=== PATIENT | female | born 1935 | race Caucasian/White ===

== ENCOUNTER 2019-03-03 09:25 | Inpatient (IN) | payer OTHER ==
[~2019-03-03] VITALS: Ht 152.4 cm; Wt 84.6 kg
[~2019-03-03 09:25] MED LIST: ACETAMINOPHEN/H1 TA6 PO; BG MC; CAPTOPRIL PO; CYCLOBENZAPRINE5 MG PO; HCTZ PO; HUMULIN R100 U/1 M1 SC; IPRATROPIUM BROM3 M2 HHN; LAC PO; LEVAQUIN250 MG PO; LISINOPRIL; METFORMIN ER500 M1 PO; ZOFI IV
[2019-03-03 09:39] VITALS: Ht 152.4 cm; Wt 84.6 kg
--- NOTE | 2019-03-03 09:42 | NUR ---
PT BIB [facility] C/O GENERALIZED WEAKNESS AND SOB THIS AM. PT IN NO RESP DISTRESS RESP EVEN AND UNLABORED PT PLACED ON FULL CM VSS O2 SAT 99% ON RA WILL CONTINUE TO MONITOR AWAITING MD KINSEY
--- NOTE | 2019-03-03 09:49 | NUR ---
PT WITH URGE TO VOID, PLACED ON BEDPAN
--- NOTE | 2019-03-03 10:09 | NUR ---
URINE COLLECTED AND SENT TO LAB
--- NOTE | 2019-03-03 10:25 | NUR ---
DR DECKER AT BEDSIDE FOR MSE
--- NOTE | 2019-03-03 10:30 | NUR ---
PT FEELS IF SHE IS HAVING URINARY INCONTINENCE AND WOULD LIKE TO HAVE BED BLANCO PLACED UNDER HER. PT ON BED BLANCO, DAUGHTER REMAINS AT BEDSIDE PT IN NO DISTRESS WILL MONITOR
--- NOTE | 2019-03-03 11:30 | NUR ---
BED BLANCO REMOVED APPROX 300ML OF URINE NOTED IN BED BLANCO
[2019-03-03 11:40] LABS: microscopic required? YES; urine erythrocyte TRACE (NEGATIVE)
--- NOTE | 2019-03-03 12:00 | NUR ---
PT BACK TO BED BLANCO PER PTS REQUEST
[2019-03-03 12:01] LABS: BASOPHIL % 1.1 % (0-2); PLATELET COUNT 228 x10^3mcL (130-400); RED CELL DISTRIBUTION WIDTH 13.9 % (11.5-14.5)
[2019-03-03 12:08] LABS: CALCIUM 9.1 mg/dL (8.5-10.1); CHLORIDE SERUM 105 mmol/L (98-107); GLUCOSE SERUM 143 mg/dL (74-106); POTASSIUM SERUM 3.8 mmol/L (3.5-5.1); SODIUM SERUM 141 mmol/L (136-145)
[2019-03-03 12:13] LABS: ALKALINE PHOSPHATASE 77 U/L (46-116); ALT/SGPT 11 U/L (14-59); AST/SGOT 12 U/L (15-37); BILIRUBIN TOTAL 0.48 mg/dL (0.20-1.00); TOTAL PROTEIN, SERUM 6.8 g/dL (6.4-8.2)
--- NOTE | 2019-03-03 12:15 | NUR ---
PT ACCIDENTLY MOVED IN BED AND URINE SPILLED. [facility] PROVIDED. PT CHANGED INTO NEW GOWN AND CLEAN LINEN CHANGED. PT IN NO DISTRESS VSS WILL MONITOR
--- NOTE | 2019-03-03 15:05 | NUR ---
REPORT GIVEN TO HIMA CAMPO RESUMING CARE OF PT IN TELE FLOOR
--- NOTE | 2019-03-03 15:17 | NUR ---
PT TRANSPORTED TO MED/SURG AT THIS TIME VIA GURNEY BY EMT LUCINA. NAD NOTED UPON LEAVING ED.
[2019-03-03 15:37] VITALS: BP 154/74
--- NOTE | 2019-03-03 15:40 | NUR ---
RECEIVED PT FROM ED VIA CAN. ORIENTED PT TO ROOM AND SURROUNDINGS. IV NOTED TO LAC PATENT AND INTACT. INSTRUCTED PT ON THE USE OF CALL LIGHT FOR ASSISTANCE. ENDORSED PT TO PRIMARY NURSE HIMA
--- NOTE | 2019-03-03 16:45 | NUR ---
PT HAS VOIDED 3-4 TIMES SINCE ARRIVAL TO UNIT. PT STATES THIS IS NORMAL GOING THIS OFTEN FOR HER. AT TIMES PT IS INCONTINENT. FOUL SMELL COMING FROM THE PERIAREA. CLEANED UP PT AND MADE PT COMFORTABLE IN BED. WILL INFORM OF URINARY FREQUENCY AND URGENCY. PT REQUESTING TO HAVE A DIAPER, EDUCATED PT ON THE RISK OF SKIN BREAKDOWN AND THE RISK FOR AN INCREASE IN BACTERIA WITH A DIAPER. PT VERBALIZED UNDERSTANDING OF INFORMATION. CALL LIGHT WITHIN REACH. WILL CONITNUE TO MONITOR PT FREQUENTLY.
--- NOTE | 2019-03-03 20:09 | NUR ---
PT CURRENTLY RESTING IN BED, NO ACUTE DISTRESS. A/O X4. NO TELE, MED/SURG. DENIES CHEST PAIN. PULSES PALPABLE IN ALL EXTREMITIES, TRACE EDEMA TO BLE NOTED. LUNG SOUNDS CTA BILATERALLY, DENIES SOB. O2 VIA NC AT 2L. BOWEL SOUNDS ACTIVE, LAST BM 03/03/19. URINARY INCONTINENCE AT TIMES. GENERALIZED WEAKNESS. 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 IV TO RAC AND LAC PATENT AND INTACT. BED IN LOWEST POSITION, SIDE RAILS UP X2, CALL LIGHT WITHIN REACH. BED IN LOWEST POSITION, SIDE RAILS UP X2, CALL LIGHT WITHIN REACH. WILL CONTINUE TO MONITOR.
[2019-03-03 20:37] VITALS: BP 149/69
--- NOTE | 2019-03-04 01:57 | NUR ---
PT CURRENTLY RESTING IN BED, NO ACUTE DISTRESS. WILL CONTINUE TO MONITOR.
[2019-03-04 05:03] VITALS: BP 117/60
--- NOTE | 2019-03-04 06:56 | NUR ---
PT SLEPT PERIODICALLY THROUGHOUT NIGHT, NO ACUTE DISTRESS. ALL NEEDS MET AND ATTENDED TO. NO SIGNIFICANT CHANGES. IV PATENT AND INTACT. BED IN LOWEST POSITION, SIDE RAILS UP X2, CALL LIGHT WITHIN REACH. WILL ENDORSE CARE TO ONCOMING NURSE.
[2019-03-04 07:00] LABS: BASOPHIL % 0.3 % (0-2); PLATELET COUNT 226 x10^3mcL (130-400); RED CELL DISTRIBUTION WIDTH 14.2 % (11.5-14.5)
--- NOTE | 2019-03-04 07:05 | NUR ---
RECEIVED PT FROM NIGHT NURSE. PT IS LAYING DOWN IN BED WITH HOB UP RESTING. PT LOOKS TO BE IN NO ACUTE DISTRESS AT THIS TIME AND DENIES ANY PAIN. RESPIRATIONS EVEN AND UNLABORED ON 2L NC. IV SITE PATENT WITH NO SIGNS OF ERYTHEMA OR SWELLING. BED IN LOWEST POSITION, CALL LIGHT WITHIN REACH. WILL CONINTUE TO MONITOR.
[2019-03-04 07:49] LABS: ALKALINE PHOSPHATASE 74 U/L (46-116); ALT/SGPT 9 U/L (14-59); AST/SGOT 18 U/L (15-37); BILIRUBIN TOTAL 0.56 mg/dL (0.20-1.00); CALCIUM 9.2 mg/dL (8.5-10.1); CARBON DIOXIDE 23.9 mmol/L (21-32); CHLORIDE SERUM 105 mmol/L (98-107); CREATININE SERUM 0.9 mg/dL (0.6-1.0); GLUCOSE SERUM 110 mg/dL (74-106); MAGNESIUM 1.5 mg/dL (1.8-2.4); POTASSIUM SERUM 3.9 mmol/L (3.5-5.1); SODIUM SERUM 140 mmol/L (136-145); TOTAL PROTEIN, SERUM 6.5 g/dL (6.4-8.2)
[2019-03-04 07:56] LABS: ALBUMIN 2.8 g/dL (3.4-5.0)
[2019-03-04 08:09] VITALS: BP 146/59
--- NOTE | 2019-03-04 09:30 | NUR ---
MOIST ERYTHEMA NOTED TO THE RIGHT ABD FOLD. CLEANSED AREA AND APPLIED INTERDRY. PT STATES SOME PAIN TO THE AREA WITH MOVEMENT. PT STATES RELIEF FROM PAIN WITH INTERDRY. MOISTURE NOTED UNDER BREAST FOLDS, NO ERYTHEMA NOTED. AREA CLEANSED AND INTERDRY APPLIED. WILL CONTINUE TO MONITOR.
[2019-03-04 11:50] VITALS: BP 133/93
[2019-03-04 16:12] VITALS: BP 143/62
--- NOTE | 2019-03-04 16:50 | NUR ---
PT WILL BE HAVING A US GALLBLADDER AND WILL NEED TO BE NPO FOR DINNER FOR PROCEDURE. PT BLOOD SUGAR IS 267, ACCORDING TO SLIDING SCALE, PT IS TO BE GETTING 9 UNITS REG INSULIN[address] INFORMED DR. GIBSON AND INFORMED OF BLOOD SUGAR. DR. GIBSON PRESCRIBED PT TO HAVE 4 UNIT REG INSULIN. WILL CARRY OUT MEDICATION ORDERED
--- NOTE | 2019-03-04 18:45 | NUR ---
PT IS LAYING DOWN IN BED WITH HOB UP RESTING. PT LOOKS TO BE IN NO ACUTE DISTRESS AND DENIES ANY PAIN AT THIS TIME. PT COMPLAINING OF VOIDING MULTIPLE TIMES AND INFORMED PT THAT MEDICATION THAT THE PT IS TAKING CAUSES HER TO VOID MORE OFTEN. PT VERBALIZED UNDERSTANDING. RESPIRATIONS EVEN AND UNLABORED ON ROOM AIR. IV SITE X2 IS PATENT WITH NO SIGNS OF ERYTHEMA OR SWELLING AND ARE H/L. BED IN LOWEST POSITION, CALL LIGHT WITHIN REACH. WILL ENDORSE TO ONCOMING SHIFT.
--- NOTE | 2019-03-04 20:22 | NUR ---
PT CURRENTLY RESTING IN BED, NO ACUTE DISTRESS. A/O X4. NO TELE, MED/SURG. DENIES CHEST PAIN. PULSES PALPABLE IN ALL EXTREMITIES, BLE TRACE EDEMA NOTED. LUNG SOUNDS CTA BILATERALLY, C/O MILD SOB DR BUCIO INFORMED, RECEIVED NEW ORDERS, RT NOTIFIED FOR TREATMENT. BOWEL SOUNDS ACTIVE, LAST BM 03/03/19. URINARY INCONTINENCE NOTED. GENERALIZED WEAKNESS. BLE ABRASIONS ODETTE. RIGHT ABD ERRYTHEMA, INTERDRY IN PLACE. IV PATENT AND INTACT. BED IN LOWEST POSITION, SIDE RAILS UP X2, CALL LIGHT WITHIN REACH. WILL CONTINUE TO MONITOR.
[2019-03-04 21:04] VITALS: BP 106/66
[2019-03-04 21:11] VITALS: BP 106/66
--- NOTE | 2019-03-05 00:14 | NUR ---
PT CURRENTLY RESTING IN BED, NO ACUTE DISTRESS. WILL CONTINUE TO MONITOR.
[2019-03-05 05:55] VITALS: BP 125/57
--- NOTE | 2019-03-05 07:10 | NUR ---
RECEIVED PT FROM NIGHT NURSE. PT IS LAYING DOWN IN BED WITH HOB UP RESTING WITH EYES CLOSED. PT LOOKS TO BE IN NO ACUTE DISTRESS AT THIS TIME. IV SITE PATENT WITH NO SIGNS OF ERYTHEMA OR SWELLING WITH IV H/L. RESPIRATIONS EVEN AND UNLABORED ON 2L NC. BED IN LOWEST POSITION, CALL LIGHT WITHIN REACH. WILL CONTINUE TO MONITOR.
[2019-03-05 07:15] LABS: BASOPHIL % 0.5 % (0-2); PLATELET COUNT 232 x10^3mcL (130-400); RED CELL DISTRIBUTION WIDTH 14.3 % (11.5-14.5)
--- NOTE | 2019-03-05 08:09 | NUR ---
ECHOCARDIOGRAM PENDING-HAVING ULTRASOUND
[2019-03-05 08:16] VITALS: BP 146/66
--- NOTE | 2019-03-05 08:21 | NUR ---
ECHOCARDIOGRAM PENDIN-NURSE WITH PATIENT
[2019-03-05 08:34] LABS: CALCIUM 9.4 mg/dL (8.5-10.1); CARBON DIOXIDE 25.1 mmol/L (21-32); CHLORIDE SERUM 103 mmol/L (98-107); GLUCOSE SERUM 140 mg/dL (74-106); MAGNESIUM 1.8 mg/dL (1.8-2.4); POTASSIUM SERUM 3.6 mmol/L (3.5-5.1); SODIUM SERUM 139 mmol/L (136-145)
--- NOTE | 2019-03-05 08:58 | NUR ---
ECHOCARDIOGRAM PENDING-HAVING BREAKFAST
--- NOTE | 2019-03-05 09:21 | NUR ---
UNABLE TO OBTAIN VITALS. PT EATING BREAKFAST.
[2019-03-05 12:10] VITALS: BP 140/69
--- NOTE | 2019-03-05 12:53 | NUR ---
PT IS SITTING UP IN BED EATING LUNCH. PT LOOKS TO BE IN NO ACUTE DISTRESS AND DENIES ANY PAIN AT THIS TIME. IV SITE PATENT WITH NO SIGNS OF ERYTHEMA OR SWELLING AND IS H/L. RESPIRATIONS EVEN AND UNLABORED ON 2L NC. BED IN LOWEST POSITION, CALL LIGHT WITHIN REACH. WILL CONITNUE TO MONITOR.
[2019-03-05 17:20] VITALS: BP 148/69
--- NOTE | 2019-03-05 17:27 | NUR ---
PT VERBALIZED CONCERN ABOUT GOING HOME AND HAVING NO ONE TO TAKE HER TO APPOINTMENTS OR CARE FOR HER. PT STATES THAT SHE LIVES WITH HER DAUGHTER BUT HER DAUGHTER WORKS AND TAKES CARE OF HER FAMILY AND THE PT STATES THAT SHE DOES NOT WANT TO OVERLOAD HER WITH WORK. PT IS INTERESTED IN HOME HEALTH AND WOULD LIKE TO KNOW IF SHE CAN HAVE A HOME HEALTH NURSING WHEN DISCHARGE. PT STATES DOES NOT HAVE AN GLUCOSE MONITORING DEVICES AT HOME AND DOES NOT FULLY UNDERSTAND EVERYTHING ABOUT DIABETES AND IS REQUESTING MORE INFORMATION. EDUCATED PT ON DIABETES AND GLUCOSE MANAGAGMENT WITH INSULIN AND PT VERBALIZED UNDERSTANDING BUT IS FORGETFULL AND IS REQUSTING MORE INFORMATION.
--- NOTE | 2019-03-05 18:48 | NUR ---
PT IS LAYING DOWN IN BED WITH HOB UP WATCHING TV. PT LOOKS TO BE IN NO ACUTE DISTRESS AT THIS TIME AND DENIES ANY PAIN. RESPIRATIONS EVEN AND UNLABORED ON 2L NC. IV SITE PATENT WITH NO SIGNS OF ERYTHEMA OR SWELLING. INTERDRY PRESENT TO ABD FOLD AND UNDER BREAST. BED IN LOWEST POSITION, CALL LIGHT WITHIN REACH. WILL ENDORSE TO ONCOMING SHIFT.
--- NOTE | 2019-03-05 19:31 | NUR ---
PT CURRENTLY RESTING IN BED, NO ACUTE DISTRESS. A/O X4. NO TELE, MED/SURG. DENIES CHEST PAIN. PULSES PALPABLE IN ALL EXTREMITIES, TRACE EDEMA TO BLE NOTED. LUNG SOUNDS CTA BILATERALLY, DENIES SOB, RECEIVING O2 VIA NC AT 2L. BOWEL SOUNDS ACTIVE, LAST BM 03/03/19. INCONTINENT AT TIMES. GENERALIZED WEAKNESS. 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 RASH TO RIGHT BREAST FOLD, INTERDRY IN PLACE. ERRYTHEMA TO RIGHT ABD FOLD, INTERDRY IN PLACE. IV PATENT AND INTACT. BED IN LOWEST POSITION, SIDE RAILS UP X2, CALL LIGHT WITHIN REACH. WILL CONTINUE TO MONITOR.
[2019-03-05 20:45] VITALS: BP 121/59
--- NOTE | 2019-03-06 00:19 | NUR ---
PT CURRENTLY RESTING IN BED, NO ACUTE DISTRESS. WILL CONTINUE TO MONITOR.
[2019-03-06 05:31] VITALS: BP 116/59
[2019-03-06 07:12] LABS: BASOPHIL % 0.4 % (0-2); PLATELET COUNT 227 x10^3mcL (130-400); RED CELL DISTRIBUTION WIDTH 14.4 % (11.5-14.5)
[2019-03-06 07:48] LABS: ALKALINE PHOSPHATASE 69 U/L (46-116); ALT/SGPT 16 U/L (14-59); AST/SGOT 16 U/L (15-37); BILIRUBIN DIRECT 0.15 mg/dL (0.0-0.2); BILIRUBIN TOTAL 0.6 mg/dL (0.20-1.00); CARBON DIOXIDE 28.4 mmol/L (21-32); CHLORIDE SERUM 100 mmol/L (98-107); CREATININE SERUM 1.2 mg/dL (0.6-1.0); GLUCOSE SERUM 96 mg/dL (74-106); POTASSIUM SERUM 3.5 mmol/L (3.5-5.1); SODIUM SERUM 138 mmol/L (136-145); TOTAL PROTEIN, SERUM 6.9 g/dL (6.4-8.2)
[2019-03-06 07:50] LABS: ALBUMIN 2.8 g/dL (3.4-5.0)
[2019-03-06 09:38] VITALS: BP 94/49
--- NOTE | 2019-03-06 10:23 | NUR ---
AAO TIMES 4. MED SURG PATIENT. LUNGS CTA BUL, DIMINISHED BASES. NO SOB. O2 SAT ON RA 97%. BS'S ACTIVE TIMES 4. OBESE. UP WITH PT BUT WAS UNABLE TO STAND BECAUSE SHE C/O LOWER BACK AND RIGHT KNEE PAIN AND BILATERAL ANKLE PAIN. I GAVE HER [facility] AT 0920, AND PT SAID THEY WOULD COME BACK AND FINISH HER PT SESSION. PERIPHERAL PULSES PALPABLE. TRACE EDEMA BLE. WITH INTRA DRY TO SLIGHT ERYTHEMA TO ABDOMINAL AND BREAST FOLDS. WITH SCATTERED DRY SCABS BLE, PATIENT STATES HER HOUSE HAS FLEAS AND THEY HAVE BEEN BITING HER, SHE STATES HER DTR BUG BOMBED THE HOUSE FOR FLEAS AND ALSO FLEA TREATED HER ANIMALS WHILE SHE HAS BEEN IN THE HOSPITAL.
[2019-03-06] MEDS ORDERED: LASIX40 MG PO (15:33)
[2019-03-06 16:52] VITALS: BP 110/45; BP 94/49
[2019-03-06 16:54] VITALS: BP 135/58
--- NOTE | 2019-03-06 18:07 | NUR ---
AAO TIMES 4. MED SURG PATIENT. NO C/O PAIN. IV SITE CDI. COOPERATIVE. WATCHING TV. HER FAMILY VISITED HER TODAY.
--- NOTE | 2019-03-06 19:58 | NUR ---
PT IS AWAKE AND ORIENTED X4. PT IS CALM AND COOPERATIVE WITH NURSING CARE. PT DENIES MESA OR DIZZINESS AT THIS TIME. PT IS [place]. PT DENIES CP OR PRESSURE AT THIS TIME. PT HAS TRACE EDEMA NOTED TO BLE. PT HAS PALAPBLE PULSES BILAT ALL EXTREMITIES. PT ON HEPARIN SQ. PT HAS DIM BASES NOTED. RESPIRATIONS EVEN AND UNLABORED ON ROOM AIR. PT DENIES SOB. PT HAS ACTIVE BOWEL SOUNDS. PT DENIES ABD PAIN AND N/V AT THSI TIME. PT ABD SOFT AND NONTENDER UPON PALPATION. PT INCONTINENT AT TIMES. PT HAS GENERALIZED WEAKNESS. PT HAS ABRASIONS NOTED TO BLE. RASH NOTED TO RIGHT BREAST WITH REDNESS NOTED TO ABD FOLDS AND BREAST FOLDS.IV TO LAC. PT DENIES PAIN OR DISCOMFORT. NO SIGNS OF DISTRESS. WILL CONTINUE TO MONITOR.
[2019-03-06 20:47] VITALS: BP 141/63
--- NOTE | 2019-03-06 23:14 | NUR ---
PT HAD AN INCONTINENT EPISODE. PT CLEANED AND TOLERATED WELL. PT RESTING IN BED AT THIS TIME. WILL CONTINUE TO MONITOR.
--- NOTE | 2019-03-07 02:38 | NUR ---
PT REMAINS IN BED AT THIS TIME RESTING IN BED. NO SIGNS OF DISTRESS. WILL CONTINUE TO MONITOR.
[2019-03-07 05:35] VITALS: BP 110/45
--- NOTE | 2019-03-07 06:40 | NUR ---
PT IS CALM AND COOPERATIVE WITH NURSING CARE. PT DENIES PAIN OR DISCOMFORT. PT SLEPT THROUGHOUT THE EVENING. PT HAD INCONTINENT BLADDER EPISODES AND CLEANED. ALL PT NEEDS MET. NO SIGNS OF DISTRESS. WILL ENDORSE TO DAY NURSE.
--- NOTE | 2019-03-07 07:41 | NUR ---
AAO TIMES 4. MED SURG. LUNGS CTA. NO SOB. O2 SAT ON RA 97%. BS'S ACTIVE TIMES 4. OGLESBY WITH GENERALIZED WEAKNESS, HAS ORDER FOR PT. PERIPHERAL PULSES PALPABLE. TRACE EDEMA BLE. TINY DRIED SCABS AND SCRATCHES TO BLE, HEALING. NO C/O PAIN. SHE C/O PAIN YESTERDAY AND WAS UNABLE TO STAND BECAUSE OF PAIN, SO I WILL MEDICATE HER FOR PAIN PRIOR TO PHYSICAL THERAPY.
[2019-03-07 09:16] VITALS: BP 131/51
[2019-03-07 10:25] VITALS: BP 110/45
[2019-03-07] MEDS ORDERED: ROC1I IV (16:10)
--- NOTE | 2019-03-07 17:40 | NUR ---
I GAVE REPORT TO NEIL CAMPO AT [id number] AT [facility] AT [phone].
--- NOTE | 2019-03-07 17:52 | NUR ---
AAO TIMES 4. I GAVE HER DISCHARGE INSTRUCTIONS AND SHE AGREED TO GO TO [facility]. [facility] CALLED AND SAID THEY WOULD BE HERE AT 2029. NO C/O PAIN. NO SOB. COOPERATIVE. SHE GOT UP WITH PHYISCAL THERAPY AND STOOD AND DID SIDE STEPS. MED SURG PATIENT.
[2019-03-07 17:54] VITALS: BP 127/77
--- NOTE | 2019-03-07 21:00 | NUR ---
Call placed to [facility] for the 830pm pickling operator and stated that there is a 2 hrs delayed. Spoken to Marta at [facility] regarding the transport time. Primary RN made aware to let patient knows.
[2019-03-07 21:26] VITALS: BP 137/62
--- NOTE | 2019-03-07 22:52 | NUR ---
STILL AWAITING [facility]. PT RESTING QUIETLY IN BED. ALERT AND ORIENTED. ABLE TO VERBALIZE NEEDS. RESP. EVEN AND UNLABORED. NO ACUTE DISTRESS NOTED. AFEBRILE AND VITAL SIGNS STABLE. DENIES CP OR ANY DISCOMFORT AT THIS TIME. CALL LIGHT WITHIN REACH. WILL CONTINUE TO MONITOR.
--- NOTE | 2019-03-07 23:45 | NUR ---
Call placed again to [facility] and spoken with Marek that they wont be able to pick pt up until close to 2am. Told Marek to have transport pickup at 0700am due to constant delay and its already late. Spoken with Marta and made aware of the delayed of transportation and will transfer pt at 0700 and will hold the bed for patient. Primary RN made aware and to let patient know.
--- NOTE | 2019-03-08 01:57 | NUR ---
PT AWARE OF TIME TO BE DC,D AND TRANSPORTED TO [facility]. RESTING QUIETLY IN BED, WITH EYES CLOSED, APPEARS ASLEEP, EASILY AROUSABLE. RESP. EVEN AND UNLABORED. NO ACUTE DISTRESS NOTED. CALL LIGHT WITHIN REACH. WILL CONTINUE TO MONITOR.
[2019-03-08 06:00] VITALS: BP 146/72
--- NOTE | 2019-03-08 06:09 | NUR ---
SLEPT WELL DURING THE NIGHT. NO SIGNIFICANT CHANGE NOTED IN PT,S CONDITION.AFEBRILE AND VITAL SIGNS STABLE.RESP. EVEN AND UNLABORED. ON ROOM AIR, NO ACUTE DISTRESS NOTED. DENIES CP OR ANY DISCOMFORT. KEPT COMFORTABLE. TO [facility] THIS AM VIA [facility].
--- NOTE | 2019-03-08 06:48 | NUR ---
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
--- NOTE | 2019-03-08 07:30 | NUR ---
RECEIVED A BEDSIDE REPORT. SEEN IN BED AWAKE, ALERT, ORIENTED X4. BREATHING E/U ON ROOM AIR. DENIES PAIN. DOCTOR GROBLER AT BEDSIDE FOR AM ROUND. PATIENT MADE AWARE OF TRANSFER TO [facility] THIS MORNING, WILL BE PICKED UP BY [facility]. [facility] BREAKFAST PROVIDED. GEN BODY WEAKNESS. S/L TO LFA INTACT AND PATENT. PLAN OF CARE DISCUSSED. CALL LIGHT PLACED WITHIN EASY REACH. SIDERAILS UP X2.
[2019-03-08 08:36] VITALS: BP 117/59
--- NOTE | 2019-03-08 08:45 | NUR ---
DUE MEDS GIVEN. [facility]ICARE PROVIDED. NEW GOWN CHANGED. DENIES DISCOMFORT AT THIS TIME.
--- NOTE | 2019-03-08 09:25 | NUR ---
PICKED UP BY [facility]. CONDITION STABLE UPON DISCHARGE. ALL PERSONAL BELONGINGS CHECKED AND KEPT WITH PATIENT. S/L TO RIGHT FOREARM REMOVED WITH CATHETER INTACT, DRSG APPLIED. S/L TO LFA FLUSHED PATENT. [place] CONFIRMED OF PATIENT TRANSFER. LALO(PATIENT'S DAUGHTER) NOTIFIED OF TRANSFER.
== END 2019-03-08 09:10 | DRG 291 ==
LOC: ED 09:25 → MU 14:07
PROVIDERS: Emergency Medicine; Internal Medicine; Internal Medicine Pulmonary Disease; ADMIT Internal Medicine Pulmonary Disease
DX: I11.0 Hypertensive heart disease with heart failure (principal); J96.01 Acute respiratory failure with hypoxia; J18.9 Pneumonia, unspecified organism; N39.0 Urinary tract infection, site not specified; I50.43 Acute on chronic combined systolic (congestive) and diastolic (congestive) heart failure; E11.9 Type 2 diabetes mellitus without complications; R53.1 Weakness; K80.20 Calculus of gallbladder without cholecystitis without obstruction; R55 Syncope and collapse; E86.0 Dehydration; J45.909 Unspecified asthma, uncomplicated; E66.9 Obesity, unspecified; Z68.39 Body mass index [BMI] 39.0-39.9, adult; Z88.0 Allergy status to penicillin
CPT/HCPCS: 82962; 83880; 97110-GP; 97116-GP; 97530-GP; G0378; J0696; J1644; J1815; J1940; J7030; Q0092; Q9967

== ENCOUNTER 2019-05-02 11:12 | Emergency (ER) | payer OTHER ==
[~2019-05-02] VITALS: Ht 149.9 cm; Wt 83.9 kg
[~2019-05-02 11:12] MED LIST changes: +LASIX40 MG PO; +ROC1I IV
[2019-05-02 11:15] VITALS: Ht 149.9 cm; Wt 83.9 kg
[2019-05-02] MEDS ORDERED: METFORMIN HYD1000 M2 PO (11:37)
[2019-05-02 11:52] LABS: BASOPHIL % 0.3 % (0-2); PLATELET COUNT 321 x10^3mcL (130-400)
[2019-05-02 11:55] LABS: RED CELL DISTRIBUTION WIDTH 15.2 % (11.5-14.5)
[2019-05-02 11:59] LABS: CALCIUM 8.8 mg/dL (8.5-10.1); CHLORIDE SERUM 104 mmol/L (98-107); CREATININE SERUM 1.1 mg/dL (0.6-1.0); GLUCOSE SERUM 69 mg/dL (74-106); POTASSIUM SERUM 3.3 mmol/L (3.5-5.1); SODIUM SERUM 143 mmol/L (136-145)
[2019-05-02 12:02] LABS: FREE T4 1.22 ng/dL (0.76-1.46); FREE THYROXINE INDEX 3.4 ug/dL (1.4-4.5)
[2019-05-02 12:06] LABS: CK-MB 2.4 ng/mL (0-3.6)
[2019-05-02 12:09] LABS: ALBUMIN 3.4 g/dL (3.4-5.0); ALKALINE PHOSPHATASE 70 U/L (46-116); ALT/SGPT 16 U/L (14-59); AST/SGOT 22 U/L (15-37); BILIRUBIN TOTAL 0.52 mg/dL (0.20-1.00); C REACTIVE PROTEIN 1.9 mg/dL (<=0.9); TOTAL PROTEIN, SERUM 7.3 g/dL (6.4-8.2)
[2019-05-02 12:46] LABS: ERYTHROCYTE SED RATE 67 mm/hr (0-30)
[2019-05-02 12:49] LABS: T3 TOTAL 0.78 ng/mL
[2019-05-02 12:53] LABS: microscopic required? YES; urine erythrocyte TRACE (NEGATIVE)
[2019-05-02 17:29] VITALS: BP 155/75
== END 2019-05-02 17:29 | disposition home or self-care (01) ==
LOC: ED 11:12
PROVIDERS: Specialist
DX: F41.8 Other specified anxiety disorders (principal); I10 Essential (primary) hypertension; E11.9 Type 2 diabetes mellitus without complications; Z88.0 Allergy status to penicillin
CPT/HCPCS: 84439; J1956; J2060; J7030; Q0092

== ENCOUNTER 2019-05-11 16:42 | Inpatient (IN) | payer OTHER ==
[~2019-05-11] VITALS: Ht 149.9 cm; Wt 83.9 kg
[~2019-05-11 16:42] MED LIST changes: +METFORMIN HYD1000 M2 PO
[2019-05-11 16:49] VITALS: Ht 149.9 cm; Wt 83.9 kg
[2019-05-11 17:59] LABS: BASOPHIL % 0.5 % (0-2); PLATELET COUNT 304 x10^3mcL (130-400)
[2019-05-11 18:02] LABS: RED CELL DISTRIBUTION WIDTH 15.5 % (11.5-14.5)
[2019-05-11 18:06] LABS: ALKALINE PHOSPHATASE 65 U/L (46-116); ALT/SGPT 13 U/L (14-59); AST/SGOT 25 U/L (15-37); BILIRUBIN TOTAL 0.8 mg/dL (0.20-1.00); CALCIUM 8.1 mg/dL (8.5-10.1); CARBON DIOXIDE 27.4 mmol/L (21-32); CHLORIDE SERUM 101 mmol/L (98-107); CREATININE SERUM 1.7 mg/dL (0.6-1.0); GLUCOSE SERUM 103 mg/dL (74-106); LIPASE 201 IU/L (73-393); SODIUM SERUM 142 mmol/L (136-145); TOTAL PROTEIN, SERUM 7.1 g/dL (6.4-8.2)
[2019-05-11 18:07] LABS: ALBUMIN 3.3 g/dL (3.4-5.0); POTASSIUM SERUM 2.5 mmol/L (3.5-5.1)
[2019-05-11] MEDS ORDERED: LEVAQUIN750 MG PO (19:37)
[2019-05-11] MEDS ORDERED: ZOLOFT50 MG PO (19:37)
[2019-05-11] MEDS ORDERED: ALLOPURINOL100 MG PO (19:38)
[2019-05-11 23:05] VITALS: BP 130/46
[2019-05-11 23:36] LABS: MAGNESIUM 0.9 mg/dL (1.8-2.4)
[2019-05-12 05:32] VITALS: BP 124/48
[2019-05-12 06:44] LABS: BASOPHIL % 0.3 % (0-2); PLATELET COUNT 277 x10^3mcL (130-400)
[2019-05-12 06:57] LABS: RED CELL DISTRIBUTION WIDTH 16.1 % (11.5-14.5)
[2019-05-12 07:04] LABS: CALCIUM 7.9 mg/dL (8.5-10.1); CARBON DIOXIDE 29.8 mmol/L (21-32); CHLORIDE SERUM 105 mmol/L (98-107); CREATININE SERUM 1.5 mg/dL (0.6-1.0); GLUCOSE SERUM 86 mg/dL (74-106); POTASSIUM SERUM 3.1 mmol/L (3.5-5.1); SODIUM SERUM 145 mmol/L (136-145)
[2019-05-12 08:42] VITALS: BP 135/48
[2019-05-12 16:53] VITALS: BP 152/46
[2019-05-12 19:25] VITALS: BP 147/49
[2019-05-13 05:37] VITALS: BP 133/47
[2019-05-13 06:21] LABS: BASOPHIL % 0.3 % (0-2); PLATELET COUNT 256 x10^3mcL (130-400)
[2019-05-13 06:31] LABS: RED CELL DISTRIBUTION WIDTH 15.9 % (11.5-14.5)
[2019-05-13 06:50] LABS: CARBON DIOXIDE 29.1 mmol/L (21-32); CHLORIDE SERUM 107 mmol/L (98-107); CREATININE SERUM 1.1 mg/dL (0.6-1.0); GLUCOSE SERUM 133 mg/dL (74-106); POTASSIUM SERUM 4.4 mmol/L (3.5-5.1); SODIUM SERUM 142 mmol/L (136-145)
[2019-05-13 09:09] VITALS: BP 144/50
[2019-05-13 16:08] VITALS: BP 130/46
[2019-05-13 20:56] VITALS: BP 132/51
[2019-05-14 05:28] VITALS: BP 135/50
[2019-05-14 06:42] LABS: CALCIUM 8.5 mg/dL (8.5-10.1); CHLORIDE SERUM 106 mmol/L (98-107); GLUCOSE SERUM 68 mg/dL (74-106); MAGNESIUM 1.7 mg/dL (1.8-2.4); POTASSIUM SERUM 4.4 mmol/L (3.5-5.1); SODIUM SERUM 141 mmol/L (136-145)
[2019-05-14 08:41] VITALS: BP 141/62
[2019-05-14 10:14] LABS: UA SPECIFIC GRAVITY 1.015 (1.005-1.035); microscopic required? YES; urine erythrocyte TRACE (NEGATIVE)
[2019-05-14 17:07] VITALS: BP 125/48
[2019-05-14 20:46] VITALS: BP 120/61
[2019-05-15 00:16] VITALS: BP 113/39
[2019-05-15 06:07] VITALS: BP 149/57
[2019-05-15 09:17] VITALS: BP 129/43
[2019-05-15 10:22] VITALS: BP 129/43
[2019-05-15] MEDS ORDERED: AMA1 PO (10:22)
[2019-05-15 18:06] VITALS: BP 120/36
== END 2019-05-15 20:10 | DRG 640 ==
LOC: ED 16:42 → MU 19:48
PROVIDERS: Emergency Medicine; Internal Medicine Pulmonary Disease; ADMIT Internal Medicine Pulmonary Disease
DX: E86.0 Dehydration (principal); N17.0 Acute kidney failure with tubular necrosis; N39.0 Urinary tract infection, site not specified; B96.20 Unspecified Escherichia coli [E. coli] as the cause of diseases classified elsewhere; E87.6 Hypokalemia; R11.2 Nausea with vomiting, unspecified; R10.9 Unspecified abdominal pain; K57.90 Diverticulosis of intestine, part unspecified, without perforation or abscess without bleeding; R54 Age-related physical debility; K80.20 Calculus of gallbladder without cholecystitis without obstruction; M10.9 Gout, unspecified; I10 Essential (primary) hypertension; F32.9 Major depressive disorder, single episode, unspecified; Z90.5 Acquired absence of kidney; Z68.37 Body mass index [BMI] 37.0-37.9, adult
CPT/HCPCS: 82962; 83880; 97116-GP; 97530-GP; G0378; J2405; J3475; J3480; J3490; J7030; J7040; J8597

== ENCOUNTER 2019-11-30 16:59 | Emergency (ER) | payer OTHER, SELFPAY ==
[~2019-11-30] VITALS: Ht 149.9 cm; Wt 81.2 kg
[~2019-11-30 16:59] MED LIST changes: +ALLOPURINOL100 MG PO; +AMA1 PO; +LEVAQUIN750 MG PO; +ZOLOFT50 MG PO
[2019-11-30 17:02] VITALS: Ht 149.9 cm; Wt 81.2 kg
[2019-11-30 18:42] LABS: BASOPHIL % 1.5 % (0-2); PLATELET COUNT 250 x10^3mcL (130-400)
[2019-11-30 20:40] LABS: CARBON DIOXIDE 28.3 mmol/L (21-32); CHLORIDE SERUM 103 mmol/L (98-107); CREATININE SERUM 0.9 mg/dL (0.6-1.0); GLUCOSE SERUM 96 mg/dL (74-106); POTASSIUM SERUM 3.9 mmol/L (3.5-5.1); SODIUM SERUM 139 mmol/L (136-145)
[2019-11-30 20:45] LABS: ALKALINE PHOSPHATASE 69 U/L (46-116); ALT/SGPT 15 U/L (14-59); AST/SGOT 16 U/L (15-37); BILIRUBIN TOTAL 0.31 mg/dL (0.20-1.00); TOTAL PROTEIN, SERUM 6.4 g/dL (6.4-8.2)
[2019-11-30 20:49] LABS: ALBUMIN 3.1 g/dL (3.4-5.0)
[2019-11-30 22:25] VITALS: BP 144/62
== END 2019-11-30 22:00 | disposition home or self-care (01) ==
LOC: ED 16:59
PROVIDERS: Emergency Medicine
DX: R42 Dizziness and giddiness (principal); I10 Essential (primary) hypertension; E11.9 Type 2 diabetes mellitus without complications; Z88.0 Allergy status to penicillin
CPT/HCPCS: J2765; J8597

== ENCOUNTER 2020-08-19 12:46 | Emergency (ER) | payer OTHER, MEDICAID, SELFPAY ==
[~2020-08-19] VITALS: Ht 162.6 cm; Wt 90.7 kg
[2020-08-19 12:58] VITALS: Ht 162.6 cm; Wt 90.7 kg
[2020-08-19] MEDS ORDERED: CAPTOPRIL25 MG PO (13:08)
[2020-08-19] MEDS ORDERED: SERTRALINE H20 MG/ML PO (13:09)
[2020-08-19] MEDS ORDERED: FORTAMET1000 MG PO (13:09)
[2020-08-19] MEDS ORDERED: KAOPECTATE262 MG (13:10)
[2020-08-19 15:00] LABS: RED CELL DISTRIBUTION WIDTH 13.6 % (12.3-17.7)
[2020-08-19 15:01] LABS: BASOPHIL % 0.8 % (0.2-1.3); PLATELET COUNT 200 x10^3mcL (179-408)
[2020-08-19 15:05] LABS: ALKALINE PHOSPHATASE 53 U/L (46-116); ALT/SGPT 26 U/L (14-59); AST/SGOT 25 U/L (15-37); BILIRUBIN TOTAL 0.5 mg/dL (0.20-1.00); CALCIUM 8.5 mg/dL (8.5-10.1); CARBON DIOXIDE 24.3 mmol/L (21-32); CHLORIDE SERUM 101 mmol/L (98-107); CREATININE SERUM 0.9 mg/dL (0.6-1.0); GLUCOSE SERUM 98 mg/dL (74-106); SODIUM SERUM 135 mmol/L (136-145); TOTAL PROTEIN, SERUM 6.5 g/dL (6.4-8.2)
[2020-08-19 15:08] LABS: ALBUMIN 3.1 g/dL (3.4-5.0)
[2020-08-19 15:10] LABS: rbc morphology (normal/abnorm) NORMAL (NORMAL)
[2020-08-19 16:18] LABS: microscopic required? YES; urine erythrocyte TRACE (NEGATIVE)
[2020-08-19 19:41] VITALS: BP 173/74
== END 2020-08-19 19:41 | disposition home or self-care (01) ==
LOC: ED 12:46
PROVIDERS: Emergency Medicine
DX: U07.1 COVID-19 (principal); N39.0 Urinary tract infection, site not specified; R19.7 Diarrhea, unspecified; E87.6 Hypokalemia; I10 Essential (primary) hypertension; E11.9 Type 2 diabetes mellitus without complications; Z98.890 Other specified postprocedural states; Z88.0 Allergy status to penicillin
CPT/HCPCS: J1956; U0003